=== PATIENT | female | born 1955 | race Caucasian/White ===

== ENCOUNTER 2021-10-31 12:30 | Emergency (ER) | payer OTHER ==
[2021-10-31 12:52] VITALS: BP 177/82; PULSE 91; TEMP 98.3; BMI 33.0
[2021-10-31] MEDS ORDERED: KETOROLAC TROMETHAMINE 30 MG/1 ML VIAL IM ONE (13:58)
[2021-10-31] MEDS ORDERED: KETOROLAC TROMETHAMINE 30 MG/1 ML VIAL ONE (13:59)
== END 2021-10-31 17:40 | disposition home or self-care (01) ==
LOC: JER 12:30 → JERFT 12:30
PROC: 3E023GC Introduction of Other Therapeutic Substance into Muscle, Percutaneous Approach (ICD-10-PCS; principal; 2021-10-31)
DX: M79.604 Pain in right leg (principal)
CPT/HCPCS: 93971-TC; 99284-25